=== PATIENT | female | born 1945 | race Caucasian/White ===

== ENCOUNTER 2020-01-21 22:28 | Inpatient (IN) | payer MEDICARE, OTHER, SELFPAY ==
[2020-01-21] VITALS (7 sets, daily range): BP systolic 128–161; BP diastolic 88–118; PULSE 87–105; RESP 10–25; TEMP 36.2; O2SAT 91–93; BMI 49.2
--- NOTE | 2020-01-21 21:50 | NURSING ---
Addendum entered by Tiffanie Lopez 01/22/20 00:17: Heparin from previous facility was running at 2,300units/hour upon arrival to this facility. Original Note: Patient came with a bag of heparin running, per physician order left heparin running and will draw a PTT and adjust and hang new bag after PTT comes back.
--- NOTE | 2020-01-21 22:40 | PCM.HP.STD ---
Problem List (1) NSTEMI (non-ST elevated myocardial infarction) Status: Acute (2) Heart failure Status: Suspected History of Present Illness Date of Admission: 01/21/20 Chief Complaint: Dyspnea The patient is a 74 year old F patient with a history of hypertension and obstructive sleep apnea who presented to [facility] with progressively worsening shortness of breath. Patient is a poor historian and is unable to give specifics. She reported that for many months she had shortness of breath but in the past 1 months her shortness of breath has been progressively worse. Her shortness of breath occurs with exertion and now it has progressed to the point where it occurs even with sitting. At [facility] her high sensitivity troponin was elevated 136.1 (normal 0-51.4). CXR was interpreted as lung base patchy infiltrate. White count was 11.6. ProBNP was elevated at 6622 (normal 0 -125) Case was discussed with Hospitalist and Global Logistics Manager . Heart Failure With elevated BNP and elevated troponin likely patient is at heart failure. Unclear whether patient has a history of heart failure. Already on Coreg and lisinopril which would be continued. Received Lasix 40 mg IV at outside hospital. Daily weights. Strict intake and output. Lasix 40 mg IV twice daily. Echocardiogram ordered. Elevated troponin Noted to have elevated high sensitive troponin at the [facility] ED. On heparin from outside Hospital; continued. Trend troponin EKG with no ST elevation at outside Probable pneumonia Actual chest x-ray from [facility] not available. Chest x-ray was interpreted by radiologist as right lung base patchy infiltrate concerning for developing infiltrate. At [facility] pulmonary ED. Repeat chest x-ray. We will hold off antibiotics at this time. We will repeat chest x-ray. If repeat chest is concerning for pneumonia recommend resuming antibiotics. Patient with a mild white count elevation of 11.6. Trend CBC Obstructive sleep apnea On AutoPap machine at home. CPAP nightly ordered. DVT Prophylaxis Subcutaneous Lovenox Past Medical History Medical History: Medical History (Last Updated 01/22/20 @ 03:[address] Valentin Mock MD) HTN (hypertension) I10 Home Medications: Ambulatory Orders Medication Instructions Recorded Carvedilol [Coreg] 12.5 mg PO BID 01/21/20 Cholecalciferol (Vitamin D3) 50 mcg PO DAILY 01/21/20 [Vitamin D3] Ibuprofen 200 mg PO PRN 01/21/20 Levothyroxine [Synthroid] 50 mcg PO DAILY 01/21/20 Lisinopril [Zestril] 20 mg PO BID 01/21/20 Mecobalamin [B12 Active] 2,500 mcg PO DAILY 01/21/20 Sertraline HCl [Zoloft] 150 mg PO DAILY 01/21/20 Surgical History: cholecystectomy - Her gallbladder was found to be cancerous after removal. Smoking Status: Never smoker - *Family History Maternal History Items: Cancer, Diabetes Paternal History Items: Hypertension, - - His father at the age of 48 from committing suicide. Review of Systems Constitutional: Denies: Chills, Fever, Weight Change HEENT: Denies: Head Aches, Sinus Congestion, Sinus Drainage Cardiovascular: Reports: Edema. Denies: Chest Pain, Palpitations Respiratory: Reports: Shortness of Breath, Shortness of breath at rest. Denies: Cough, Sputum production Gastrointestinal: Denies: Abdominal Pain, Nausea, Vomiting Genitourinary: Denies: Dysuria Musculoskeletal: Denies: Joint Pain, Joint Tenderness Skin: Denies: Rash, Wounds Neurological: Denies: Numbness, Tingling, Focal weakness Psychiatric: Denies: Anxiety, Depression, Homicidal Ideations, Suicidal Ideations Hematologic/ Lymphatic: Denies: Easy Bruising, Easy Bleeding VTE Information - Inpt Only VTE Present on Admission: No VTE Mechan Device Prophylaxis: None VTE Pharm Prophylaxis ordered?: Yes Patient Problems: Active and Suspected Problems NSTEMI (non-ST elevated myocardial infarction) (Acute) Heart failure (Suspected) - Physical Exam Vitals/I&O's: Vital Signs Temp Pulse Resp BP Pulse Ox 97.1 F L 87 19 H 157/101 H 93 01/21/20 21:30 01/21/20 22:30 01/21/20 22:30 01/21/20 22:30 01/21/20 22:30 Oxygen Delivery Method Room Air Weight: 134.2 kg Body Mass Index (BMI) 49.2 General: Alert, Oriented x3, Cooperative HEENT: Atraumatic, PERRLA, EOMI, Normocephalic Neck: Supple, No JVD, Negative Carotid Bruits Lungs: Clear to auscultation, Normal air movement Cardiovascular: Regular rate, Normal S1, Normal S2, No murmurs Abdomen: Bowel Sounds Present, Soft, Non Tender Extremities: No edema, Capillary Refill Less than 3 Seconds Skin: No rashes, No breakdown Musculoskeletal: No Tenderness to Palpation of Joints or Extremities Neurological: Cranial nerves II-XII grossly intact Psych/Mental Status: Normal Affect, Appropriate Current Medications Sodium Chloride () 250 mls @ 15 mls/hr IV .[id number] PRN PRN Reason: Saline Flush Sodium Chloride () 250 mls @ 15 mls/hr IV .[id number] PRN PRN Reason: Additional IVPB Infusion Sodium Chloride (0.9% Saline Lock 10 Ml Syringe) 10 - 40 ml IV UD PRN PRN Reason: SALINE FLUSH Assessment/Plan All Active Problems NSTEMI (non-ST elevated myocardial infarction) (Acute) Heart Failure With elevated BNP and elevated troponin likely patient is in heart failure. Unclear whether patient has a history of heart failure. Already on Coreg and lisinopril which will be continued. Received Lasix 40 mg IV at outside hospital. Daily weights. Strict intake and output. Lasix 40 mg IV twice daily. Supplement potassium. Echocardiogram ordered. Elevated troponin It could be demand ischemia or NSTEMI Noted to have elevated high sensitive troponin at the [facility] ED. On heparin from outside Hospital; continued. Trend troponin Probable pneumonia Actual chest x-ray from [facility] not available. Chest x-ray was interpreted by radiologist as right lung base patchy infiltrate concerning for developing infiltrate. At [facility] pulmonary ED. Repeat chest x-ray. We will hold off antibiotics at this time. We will repeat chest x-ray. If repeat chest is concerning for pneumonia recommend resuming antibiotics. Patient with a mild white count elevation of 11.6. Trend CBC HTN Blood pressure is elevated Lisinopril and coreg continued. Trend BP and adjust bp meds Obstructive sleep apnea On AutoPap machine at home. CPAP nightly ordered. DVT Prophylaxis Subcutaneous Lovenox Inpatient E&M: 52214 Init Hosp L3
--- NOTE | 2020-01-21 22:57 | EKG12_ITS ---
Test Reason : NEW EKG Blood Pressure : / mmHG Vent. Rate : 083 BPM Atrial Rate : 083 BPM P-R Int : 156 ms QRS Dur : 100 ms QT Int : 392 ms P-R-T Axes : 002 -55 -31 degrees QTc Int : 460 ms Normal sinus rhythm Left axis deviation Inferior infarct , age undetermined Anterior infarct , age undetermined Abnormal ECG No previous ECGs available Confirmed by NABOR BABCOCK MD ([id number]), commercial production editor NICHO TRENT ([id number]) on 01/23/2020 12:50:45 PM Referred By: Valentin Mock Confirmed By:NABOR BABCOCK MD
--- NOTE | 2020-01-21 22:57 | ECHOD_ITS ---
Reason For Study: DYSPNEA/SOB Procedure This was a 2D Doppler, Color Flow transthoracic echocardiogram. The study was technically difficult. Exam performed supine due to obesity. Exam performed portable in ICU/CCU. Deferred Definity for optimal endocardial imaging due to increased PAP >55mmHG. Left Ventricle Based upon the 2D echocardiographic images obtained there appears to be grossly normal left ventricular size, wall motion, and systolic function. The estimated ejection fraction is 65 %. Unable to assess diastolic dysfunction. Right Ventricle Mildly dilated right ventricle. Mild global right ventricular systolic dysfunction. Atria Normal left atrium. The right atrium is mildly enlarged. No doppler evidence for ASD. Mitral Valve There is no mitral annular calcification. Normal mitral valve. Trivial mitral valve insufficiency. Tricuspid Valve Normal tricuspid valve. Mild tricuspid valve insufficiency. Right ventricular systolic pressure estimated to be 70 mmHg. Aortic Valve The aortic valve is not well visualized. Mild focal aortic valve thickening. Mild focal aortic valve calcification. Mild aortic stenosis. Trivial aortic valve insufficiency. Pulmonic Valve The pulmonic valve is not well visualized. Great Vessels Mild to moderately dilated ascending aorta. Pericardium/Pleural No pericardial effusion. MMode/2D Measurements & Calculations LVIDd: 4.6 cm IVSd: 1.4 cm LVOT diam: 1.9 cm LVIDs: 3.0 cm LVPWd: 1.0 cm LVOT area: 2.9 cm2 RVDd: 3.5 cm FS: 35.3 % Ao root diam: 3.5 cm LAV(MOD-sp2): 53.5 ml LA A4 area: 14.2 cm2 LAV(MOD-sp4): 35.7 ml LA dimension(2D): 3.4 cm Time Measurements MV dec time: 0.26 sec Doppler Measurements & Calculations MV E max courtney: 64.2 cm/sec Ao V2 max: 192.4 cm/sec LV V1 max: 112.9 cm/sec MV A max courtney: 97.7 cm/sec Ao max P.8 mmHg LV V1 max P.1 mmHg MV E/A: 0.66 Ao V2 mean: 137.0 cm/sec LV V1 mean P.3 mmHg Ao mean P.6 mmHg LV V1 mean: 88.7 cm/sec Ao V2 VTI: 30.8 cm LV V1 VTI: 20.3 cm CAROLINA(I,D): 1.9 cm2 CAROLINA(V,D): 1.7 cm2 SV(LVOT): 59.1 ml PA V2 max: 87.9 cm/sec TR max courtney: 364.9 cm/sec TR max P.3 mmHg Interpretation Summary The study was technically difficult. Based upon the 2D echocardiographic images obtained there appears to be grossly normal left ventricular size, wall motion, and systolic function. The estimated ejection fraction is 65 %. Mildly dilated right ventricle. Mild global right ventricular systolic dysfunction. Trivial mitral valve insufficiency. Mild tricuspid valve insufficiency. The aortic valve is not well visualized. Mild aortic stenosis. Trivial aortic valve insufficiency. Mild to moderately dilated ascending aorta. (approximately 4.4 cm) Right ventricular systolic pressure estimated to be 70 mmHg c/w pulmonary hypertension. Unable to assess diastolic dysfunction. Ordering Physician: Valentin Mock Referring Physician: NO PCP Performed By: Kezia Messer RDCS, RVT
[2020-01-21 23:45] LABS: Partial Thromboplast Time > 250.0 Seconds (24.1-36.2)
[2020-01-22] VITALS (24 sets, daily range): BP systolic 94–167; BP diastolic 70–115; PULSE 66–92; RESP 14–30; TEMP 36.4–36.8; O2SAT 91–100
--- NOTE | 2020-01-22 00:16 | NURSING ---
PTT came back great than 250.0 heparin was paused at 23:45 and will be restarted at 0145am at the 1,700 units per hour as ordered per our physician.
[2020-01-22] MEDS: HEPARIN/D5w 25,000 UNITS 25,000 UNITS/250 ML IV.SOLN. 17 UNITS IV (01:53)
[2020-01-22 04:49] LABS: Absolute Lymphocyte Count 2.28 X10^3/uL (0.83-4.51); Basophil# 0.04 X10^3/uL; Basophil% 0.4 % (0-1); Eosinophil# 0.12 X10^3/uL; Eosinophils% 1.3 % (0-5); Hematocrit 39.1 % (37-47); Hemoglobin 12.4 g/dL (12.0-15.0); Lymphocyte # 2.28 X10^3/ul (4.0); Lymphocyte % 25.2 % (19-41); Mean Corp Hgb Conc 31.7 g/dL (32-36); Mean Corpuscular Hgb 28.5 pg (27.0-32.0); Mean Corpuscular Volume 89.9 fL (81-99); Mean Platelet Vol. 9.7 fl (6.2-12.0); Monocyte# 0.59 X10^3/uL; Monocyte% 6.5 % (0-10); NRBC Flagged by Analyzer 0 % (0-5); Neutrophil # 5.97 X10^3/uL (2.7-7.7); Neutrophil % 66.2 % (47-70); Platelet Count 222 K/mm3 (150-450); RBC Distribution Width CV 13.2 % (11.6-14.6); RBC Distribution Width SD 43.7 fl (35.1-43.9); Red Blood Count 4.35 M/mm3 (4.2-5.4)
[2020-01-22 05:07] LABS: Anion Gap 5 (5-15); BUN 13 mg/dL (7-18); BUN/Creat Ratio 15.7 RATIO (10-20); Calcium,Total 9.1 mg/dL (8.5-10.1); Chloride 109 mmol/L (98-107); Cholesterol 126 mg/dL (200); Creatinine, Serum 0.83 mg/dL (0.55-1.02); EST Glomerular Filtration Rate 71 mL/min (>60); Est Glom Filt Rate - Afr Amer 86 mL/min (>60); Estimated Creatinine Clearance 53.51 ml/min; Glucose 100 mg/dL (74-106); High Density Lipoprotein 44 mg/dL; Potassium 3.5 mmol/L (3.5-5.1); Sodium Level 141 mmol/L (136-145); Thyroid Stim Hormone (TSH) 2.56 uIU/mL (0.358-3.74); Triglycerides 92 mg/dL; Very Low Density Lipoprotein 18 mg/dL (5-40)
[2020-01-22] MEDS: Levothyroxine 50 MCG Tablet PO (05:44)
--- NOTE | 2020-01-22 05:55 | RAD_ITS ---
STUDY: X-RAY CHEST REASON FOR EXAM: Female, 74 years old. SOB TECHNIQUE: Single AP portable view of the chest. COMPARISON: None. FINDINGS: EKG electrodes are seen. The lungs are clear and expanded. There is no demonstrated pleural abnormality. Normal size heart. Normal mediastinum and samuel. Normal visualized pulmonary arteries. There is atherosclerotic tortuosity of the aortic arch and descending thoracic aorta. Normal visualized thoracic spine. Normal visualized ribs, clavicles, and shoulders. There is no demonstrated abnormality of the visualized soft tissue structures of the upper abdomen. RAD/Chest 1 View (Portable) IMPRESSION: Normal x-ray examination of the chest. Electronically Signed: Koko Guzman, at 10:20 EST , Service support ,
--- NOTE | 2020-01-22 07:24 | PCM.PN.HOSP ---
Patient Problems: Active and Suspected Problems (Last Updated 01/22/20 @ 15:35 by Sandy Sharif) NSTEMI (non-ST elevated myocardial infarction) (Acute) Heart failure (Suspected) HLD (hyperlipidemia) (Acute) Reason for Visit: Follow-up on hypoxia/Acute NSTEMI Subjective: Patient was seen and examined. She feels slightly better. Patient underwent cardiac catheterization today. Coronaries were normal. Left ventricle was normal, questionable bicuspid AV with mild aortic stenosis, severe pulmonary hypertension, RVSP 70 Objective: Physical exam: General: Alert, Oriented x3, Cooperative, on 2L oxygen HEENT: Atraumatic, PERRLA, EOMI, Normocephalic Neck: Supple, No JVD, Negative Carotid Bruits Lungs: Diminished air entry at lung bases Cardiovascular: Regular rate, Normal S1, Normal S2, No murmurs Abdomen: Bowel Sounds Present, Soft, Non Tender Extremities: Bilateral pedal edema +1-2 Skin: No rashes Musculoskeletal: No Tenderness to Palpation of Joints or Extremities Neurological: Cranial nerves II-XII grossly intact Psych/Mental Status: Normal Affect, Appropriate Vitals/I&O's: Vital Signs Temp Pulse Resp BP Pulse Ox 97.5 F L 78 18 125/78 H 93 01/22/20 05:00 01/22/20 07:00 01/22/20 07:00 01/22/20 07:00 01/22/20 07:00 Oxygen Delivery Method Room Air Weight: 132.449 kg Body Mass Index (BMI) 49.2 Intake and Output for Last 24 Hours 01/20/20 01/21/20 01/22/20 23:59 23:59 23:59 Intake Total 30 Output Total 725 / 725 550 / 550 Balance -725 / -725 -520 / -520 Laboratory Results 01/21/20 23:05: Troponin I 0.165 H 01/21/20 23:05: APTT > 250.0 H* 01/22/20 02:35: Troponin I 0.117 H 01/22/20 04:25: Troponin I 0.102 H 01/22/20 04:30: WBC 9.0, RBC 4.35, Hgb 12.4, Hct 39.1, MCV 89.9, MCH 28.5, MCHC 31.7 L, RDW Std Deviation 43.7, RDW Coeff of Sky 13.2, Plt Count 222, MPV 9.7, Immature Gran % (Auto) 0.400, Neut % (Auto) 66.2, Lymph % (Auto) 25.2, Drew % (Auto) 6.5, Eos % (Auto) 1.3, Baso % (Auto) 0.4, Absolute Neuts (auto) 6.0, Absolute Lymphs (auto) 2.28, Nucleated RBC % 0 01/22/20 04:30: Sodium 141, Potassium 3.5, Chloride 109 H, Carbon Dioxide 27.0, Anion Gap 5, BUN 13, Creatinine 0.83, Estim Creat Clear Calc 53.51, Est GFR (MDRD) Af Amer 86, Est GFR (MDRD) Non-Af 71, BUN/Creatinine Ratio 15.7, Glucose 100, Calcium 9.1, Triglycerides 92, Cholesterol 126, LDL Cholesterol 64, VLDL Cholesterol 18, HDL Cholesterol 44, TSH 2.56 Current Medications Acetaminophen (Acetaminophen 325 Mg Tablet) 650 mg PO Q6H PRN PRN PRN Reason: Pain Score 1-10/Temp > 100.7 F Aspirin (Aspirin E.C. 81 Mg Tablet) 81 mg PO DAILY@0800 [facility] Atorvastatin Calcium (Atorvastatin Calcium 40 Mg Tablet) 40 mg PO QHS [facility] Carvedilol (Carvedilol 12.5 Mg Tablet) 12.5 mg PO BID [facility] Furosemide (Furosemide 40 Mg/4 Ml Vial) 40 mg IV BID@1000,1800 [facility] Heparin Sodium (Porcine) (Heparin Injection (Vial) 5,000 Unit/Ml Vial) 0 unit IV UD PRN; Protocol PRN Reason: dose adjustment Sodium Chloride () 250 mls @ 15 mls/hr IV .[id number] PRN PRN Reason: Saline Flush Sodium Chloride () 250 mls @ 15 mls/hr IV .[id number] PRN PRN Reason: Additional IVPB Infusion Heparin Sodium/Dextrose () 25,000 units in 250 mls @ 17 mls/hr IV .[id number] [facility]; Protocol Last Admin: 01/22/20 01:54 Dose: Not Given Documented by: Levothyroxine Sodium (Levothyroxine 50 Mcg Tablet) 50 mcg PO DAILY@0600 [facility] Last Admin: 01/22/20 05:44 Dose: 50 mcg Documented by: Lisinopril (Lisinopril 20 Mg Tablet) 20 mg PO BID [facility] Potassium Chloride (Potassium Chloride 20 Meq Tablet) 40 meq PO DAILYCM [facility] Senna/Docusate Sodium (Senna/Docusate Sodium 1 Tablet) 2 tablet PO BID PRN PRN PRN Reason: Constipation Sertraline HCl (Sertraline 100 Mg Tablet) 150 mg PO DAILY [facility] Sodium Chloride (0.9% Saline Lock 10 Ml Syringe) 10 - 40 ml IV UD PRN PRN Reason: SALINE FLUSH STROKE Vital Signs/Narrative: Vital Signs Temp Pulse Resp BP Pulse Ox 01/22/20 07:00 78 18 125/78 H 93 01/22/20 06:00 82 16 127/77 H 93 01/22/20 05:00 97.5 F L 92 14 131/70 H 93 01/22/20 04:00 81 15 94/71 92 Medical Necessity - Tobacco Use Smoking Status: Never smoker Assessment/Plan All Active Problems (Last Updated 01/22/20 @ 15:35 by Sandy Sharif) NSTEMI (non-ST elevated myocardial infarction) (Acute) HLD (hyperlipidemia) (Acute) 1. Acute NSTEMI, s/p cardiac cath showed normal coronaries Continue on aspirin, statin, carvedilol, lisinopril 2. Acute hypoxic respiratory insufficiency secondary to severe pulmonary hypertension/probable diastolic CHF Continue with breathing treatments, encourage use of incentive spirometer. Wean off oxygen for SPO2 more than 94% 3. severe pulmonary hypertension/probable diastolic CHF Continue scheduled Lasix IV twice daily 4. Abnormal CXR, acute pneumonia ruled out with normal repeat CXR 5. Hypertension, controlled, continue on lisinopril 6. Hypothyroidism, continue levothyroxine 7. NASEEM on CPAP 8. DVT PPx - early ambulation Inpatient E&M: 32837 Subs Hosp L2
--- NOTE | 2020-01-22 08:50 | CON.PCM_ITS ---
Problem List (1) NSTEMI (non-ST elevated myocardial infarction) Status: Acute (2) Heart failure Status: Suspected Qualifiers: Heart failure type: unspecified (3) Murmur, cardiac Status: Chronic (4) HLD (hyperlipidemia) Status: Acute (5) HTN (hypertension) Status: Chronic (6) NASEEM (obstructive sleep apnea) Status: Chronic (7) Lymphedema Status: Chronic (8) Gallbladder carcinoma Status: Chronic Reason for Consult Date of Consultation: 01/22/20 History of Present Illness: The patient is a 74 year old old white female with a past history of a cardiac murmur, hyperlipidemia, hypertension, obstructive sleep apnea, lymphedema, 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 She presented to her local emergency department yesterday based upon concerns of chest discomfort that occurred earlier in the day associated with shortness of breath/dyspnea. She states she has a home O2 sat monitor. Based upon her home O2 sat monitor she stated her O2 saturation was in the 70 to 80% range. Later on she states it stabilized in the 80 to 90% range. She contacted her primary care physician. She noted later that day she received a call from her primary care physician office stating she should report to the emergency department for further evaluation. By that time she had elected to contact the EMS and have herself taken to the local emergency department. There she was found to have an abnormal high-sensitivity TSH level, an abnormal NT proBNP level, and abnormal chest x-ray suggesting a right basilar patchy infiltrate concerning for pneumonia, and a COVID-19 negative test. According to a telephone conversation with the emergency department physician her ECG demonstrated no acute changes. A copy is unavailable for review at this time. The patient was subsequently transferred to [facility] for further evaluation and care. In the interim she reportedly received medical therapy with aspirin, clopidogrel/Plavix, IV heparin, and IV Lasix. She has denied any acute orthopnea or PND. She does not recall having nausea or emesis. She states she may have been diaphoretic. There has been no loss of consciousness. She states her lower extremity chronic lymphedema may have been getting worse recently. She does note that her shortness of breath/dyspnea has been worsening over approximately the last 4 weeks. She does not recall any fevers. She states she is been followed by [facility] cardiology in the past. She is unsure as to the exact reason for this. However she states there has been concern of a cardiac murmur and whether she has a bicuspid valve. According to the medical records available for her there is a comment that she may have mitral valve regurgitation. She believes she has undergone cardiovascular testing in the past. She is unclear whether she ever had a transthoracic echocardiogram. She does believe that she had an exercise tolerance test/imaging study performed on more than one occasion. She believes these test may have been performed at [facility]. She does state that her history of gallbladder carcinoma was found after her gallbladder was removed. She was subsequently evaluated at the [facility] Main campus. She underwent additional surgery. She underwent chemotherapy. She states that is now approximately 3 years ago. She follows with [facility] hematology oncology locally for routine outpatient follow-ups. At the moment she states she feels better. She appears to be resting comfortably at the moment. She is not currently wearing O2 as she was at her local emergency department. At that time she was reported by telephone is requiring 4 L O2 nasal cannula to keep her O2 saturations in the low 90% range. [] Past Medical History Allergies/Adverse Reactions: Allergies No Known Allergies Allergy (Verified 01/21/20 23:45) Home Medications: Ambulatory Orders Medication Instructions Recorded Carvedilol [Coreg] 12.5 mg PO BID 01/21/20 Cholecalciferol (Vitamin D3) 50 mcg PO DAILY 01/21/20 [Vitamin D3] Ibuprofen 200 mg PO PRN 01/21/20 Levothyroxine [Synthroid] 50 mcg PO DAILY 01/21/20 Lisinopril [Zestril] 20 mg PO BID 01/21/20 Mecobalamin [B12 Active] 2,500 mcg PO DAILY 01/21/20 Sertraline HCl [Zoloft] 150 mg PO DAILY 01/21/20 Past Medical History (Chronic Problems): Chronic Problems (Last Updated 01/22/20 @ 03:[address] Valentin Mock MD) Murmur, cardiac (Chronic) HTN (hypertension) (Chronic) NASEEM (obstructive sleep apnea) (Chronic) Gallbladder carcinoma (Chronic) Lymphedema (Chronic) Surgical History: cholecystectomy - Her gallbladder was found to be cancerous after removal. - *Family History Maternal History Items: Cancer, Diabetes Paternal History Items: Hypertension, - - His father at the age of 48 from committing suicide. Smoking Status: Never smoker Review of Systems - Review of Systems General: Denies: Fever, Night Sweats, Fatigue Cardiovascular: Reports: Chest Discomfort, Chest Discomfort at Rest, Shortness of Breath, Shortness of Breath at Rest, Shortness of Breath with Exertion, Peripheral Edema. Denies: Orthopnea, PND, Palpitations, Lightheadedness, Dizziness, Near Syncope, Syncope Respiratory: Reports: Shortness of Breath. Denies: Cough, Sputum Production, Hemoptysis Gastrointestinal: Denies: Hematemesis, Hematochezia, Melena Genitourinary: Denies: Dysuria, Hematuria Skin: Denies: Rash Objective: Vital Signs Temp Pulse Resp BP Pulse Ox 97.5 F L 78 18 125/78 H 93 01/22/20 05:00 01/22/20 07:00 01/22/20 07:00 01/22/20 07:00 01/22/20 07:00 Oxygen Delivery Method Room Air Weight: 292 lb Body Mass Index (BMI) 49.2 Intake and Output for Last 24 Hours 01/20/20 01/21/20 01/22/20 23:59 23:59 23:59 Intake Total 30 / 30 Output Total 725 / 725 550 / 550 Balance -725 / -725 -520 / -520 General: Awake, Alert, Oriented x 3, Cooperative, No Acute Distress, Obese HEENT: Atraumatic, Normocephalic, PERRL, EOMI, Sclera Non Icteric Neck: Supple, Good ROM, No JVD Lungs: Diminished Desmond Bases, - - Diminished inspiratory effort Cardiovascular: Regular Rhythm, Normal S1, Normal S2 Murmur Murmur: Grade 2/6, Soft, Mid Systolic, LLSB, LVOT, Sternal Notch Vascular: No Carotid Bruits Abdomen: Bowel Sounds Present, Soft, Non Tender, Obese Extremities: Severe RLE Edema, Severe LLE Edema Psych/Mental Status: Appropriate 01/21/20 23:05: Troponin I 0.165 H 01/21/20 23:05: APTT > 250.0 H* 01/22/20 02:35: Troponin I 0.117 H 01/22/20 04:25: Troponin I 0.102 H 01/22/20 04:30: WBC 9.0, RBC 4.35, Hgb 12.4, Hct 39.1, MCV 89.9, MCH 28.5, MCHC 31.7 L, Plt Count 222, MPV 9.7, Immature Gran % (Auto) 0.400, Neut % (Auto) 66.2, Lymph % (Auto) 25.2, Ray % (Auto) 6.5, Eos % (Auto) 1.3, Baso % (Auto) 0.4, Absolute Neuts (auto) 6.0, Nucleated RBC % 0 01/22/20 04:30: Sodium 141, Potassium 3.5, Chloride 109 H, Carbon Dioxide 27.0, Anion Gap 5, BUN 13, Creatinine 0.83, Est GFR (MDRD) Af Amer 86, Est GFR (MDRD) Non-Af 71, BUN/Creatinine Ratio 15.7, Glucose 100, Calcium 9.1, Triglycerides 92, Cholesterol 126, LDL Cholesterol 64, VLDL Cholesterol 18, HDL Cholesterol 44 Rhythm: Sinus rhythm EKG: Sinus rhythm; left axis deviation; possible anterior AK of indeterminate age; possible inferior AK of indeterminate age ECHO: Pending CXR: Preliminary evaluation: Possible right lower lobe infiltrate; possible increased pulmonary vascularity; possible tortuous thoracic aorta; official report pending Assessment/Plan 1. Non-ST segment elevation AK The patient has been referred for concerns of a non-ST segment elevation AK. She presented with chest discomfort and shortness of breath and potentially diaphoresis superimposed upon her chronic medical conditions. At the outside institution she had an elevated high-sensitivity troponin I level. This is been repeated locally. Her troponin I levels are indeterminant. Are decreasing. Her ECG is as noted. She is pending further evaluation with a transthoracic echocardiogram to evaluate her left ventricular wall motion and systolic function. From a cardiac standpoint she will continue medical therapy for the possibility of an acute coronary syndrome/non-ST segment elevation AK. However, it is unclear whether this may be a type I event versus a type II event from supply demand mismatch. She may eventually need further evaluation with diagnostic cardiac catheterization to evaluate her coronary anatomy. In the interim she should be considered for other etiologies of her symptoms and her laboratory findings. This would include screening the patient for any thromboembolic disease. This could include a D-dimer level and if abnormal consideration for chest CT scan to evaluate for any obvious evidence of pulmonary emboli. The patient has been reported as being evaluated at the outside institution for COVID-19. Her test report from the outside institution was negative. 2. CHF The patient has been reported as having concerns of CHF. This is based upon her history and examination findings and elevation of an outside NT proBNP level at 6622. At this point time it is unclear as to whether this represents cardiovascular related CHF either systolic or diastolic from issues with the left ventricular dysfunction versus potentially obstructive sleep apnea with concerns of possible pulmonary hypertension and cor pulmonale and right heart failure. At the moment she will be followed. Her laboratory studies can be followed. She is receiving medical therapy which includes IV diuretics. She is pending evaluation with a transthoracic echocardiogram. 3. Cardiac murmur She states she has a longstanding history of cardiac murmur. She does on examination. She has commented something regarding a bicuspid valve. Her outside medical records states she has a history of mitral valve regurgitation. She is undergoing evaluation with an echocardiogram to evaluate her valvular anatomy and physiology. 4. Hyperlipidemia She does have a history of hyperlipidemia. Her lipids have been reviewed. She will continue medical therapy. 5. Hypertension She reports that she normally is hypertensive. At the moment her blood [id number] being monitored. She will continue medical management. 6. Obstructive sleep apnea She reports a history of NASEEM. This could lead to pulmonary hypertension with cor pulmonale and right heart failure. This could contribute to her symptoms and her objective findings such as her lower extremity edema. She will undergo evaluation with an echocardiogram and an attempt to assess her right-sided pressures/right sided function to assist with her ongoing evaluation and care. 7. Lymphedema She states she has a longstanding history of lymphedema. She was told that diuretics were not going to be able to benefit her because of her lymphedema. However she states her lower extremity and it has worsened recently. Thus she will continue evaluation care as noted. 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 She follows with [facility] hematology oncology locally for her routine outpatient follow-ups. Comment: The patient's case has been discussed and reviewed with the patient and previously with the outside emergency department physician staff. This note was generated using a voice recognition system and there may be incorrect words, spelling or punctuation that were not noted when reviewing the office note prior to saving.
[2020-01-22 09:54] LABS: D-Dimer Quantitative (DVT/PE) 2.93 FEU/ug/m (0.27-0.49)
[2020-01-22] MEDS: Carvedilol 12.5 MG Tablet PO ×2 (10:19→22:20)
[2020-01-22] MEDS: Aspirin E.C. 81 MG Tablet PO (10:19)
[2020-01-22] MEDS: TICAGRELOR 90 MG TABLET 180 MG PO (10:19)
[2020-01-22] MEDS: 0.9% Normal Saline 1,000 ML 50 ML IV (13:10)
--- NOTE | 2020-01-22 13:18 | CL.D_ITS ---
Patient Name: ISHMAEL NUNN Study Date: 01/22/2020 Performing: Filiberto Jamil MD Ht: 65 inches 165 cm : 1945 Wt: 291.4 lbs 132 kg Age: 74 Gender: female BSA: 2.32 PROCEDURE(S) PERFORMED [id number] ROOT ANGIO WITH HEART CATH CLINICAL PROFILE AND INDICATIONS Indications: ACS <= 24 hrs, Suspected CAD, Valvular Disease Heart Failure: NYHA Class: 3, Newly Diagnosed: Yes, Heart Failure Type: Diastolic Stress/Imaging Stress/Image Study Performed: No Angina Classification Anginal Classification w/in 2 Weeks: Anginal Equivalent Dyspnea CAD Presentations: Other: chest pain; dyspnea CONCLUSIONS Normal coronary arteries Aortic Root dilated Aortic Valve: cannot exclude a Bicuspid Aortic Valve with Mild Insufficiency RECOMMENDATIONS Risk factor modification Medical therapy Consider AV evaluation with MILIND DESCRIPTION OF PROCEDURE The patient arrived to the procedure lab. The risks and benefits of the procedure as well as a full d escription of our services here and current unavailability of surgical backup were fully explained to the patient and/or their significant other prior to the catheterization. The Timeout was completed, verifying the correct patient and procedure. The patient's procedural site was prepped and draped in the usual fashion. Local anesthetic was given subcutaneously to right radial region with Lidocaine 2% . Using a modified Seldinger technique, arterial access was obtained via the right radial artery, a 6 Fr sheath was inserted. Left Coronary Artery selective angiography was performed in multiple views u sing a 5 Fr. JL 5 catheter. Right Coronary Artery selective angiography was then performed in multipl e views using a 5 Fr. JR 4 catheter. Ascending (root) aorta selective angiography was then performed in single view. Ascending (root) aorta selective angiography was then performed in single view.The arterial sheath was pulled and a TR Band was applied for hemostasis 20cc air CORONARY ANGIOGRAPHY DOMINANCE: Right Dominant LEFT HEART ASSESSMENT Left Ventricular Ejection Fraction: Not assessed LEFT MAIN: Angiographically normal LEFT ANTERIOR DESCENDING ARTERY: Angiographically normal CIRCUMFLEX ARTERY: Angiographically normal RIGHT CORONARY ARTERY: Angiographically normal VALVE FINDINGS: Cannot excluded Bicuspid Aortic Valve Aortic Valve Insufficiency: Grade 1 cannot exclude a Bicuspid Aortic Valve with Mild Insufficiency AORTIC ROOT: Dilated COMPLICATIONS No Complications PROCEDURE MEDICATIONS Fentanyl 50 mcg IV Versed 1 mg IV Oxygen: 2 L/min via nasal cannula Heparin diluted in 23cc Heparinized saline. Patient given 10cc IA of this solution. 01/22/2020 12:29 :25 Verapamil 2.5mg, Ntg 100mcgs, 2000 units of Heparin diluted in 23cc Heparinized saline. Patient give n 10cc IA of this solution. 01/22/2020 12:29:25 SUMMARY OF HEMODYNAMIC DATA Time AIR REST ECG 10:47:30 AO 116/64 (80) SA 12:20:31 AO 144/80 (107) 12:57:56 Signed By Filiberto Jamil MD On 01/22/2020 13:17:42 Filiberto Jamil MD
--- NOTE | 2020-01-22 13:45 | CASEMGMT ---
ETHEL HYATT assessment: Face to Face with patient for initial transition planning/care coordination assessment. ETHEL HYATT introduced self and role at [facility], pt voices understanding and consents to assessment at this time. Pt is sitting up in bed in no distress at this time. Pt is A/Ox4 at this time and answers most questions appropriately at this time. Pt is forgetful and cannot remember names of doctors, pharmacy or DME company. Care providers, pharmacy, and demographics verified/updated at this time. Presentation: Pt is direct admit from [facility] for worsening SOB, elevated troponin Admitting dx: NSTEMI PCP: Rea Specialists: lissy Huizar Pharmacy: [facility] Insurance: [employer] [facility] A/B, itembase Prescription Benefit: Rx plan Living Will/HPOA: Pt states has LW/HPOA and is aware that they are not on file at [facility] at this time. Pt states that her daughter, Dina Meyer, is HPOA. LNOK: Magen Jackson, ; Dina Meyer, daughter/HPOA Living Arrangements: Pt states lives with on main level of 2 story [employer] and states no concerns at home at this time. Pt states is independent with ADL's. Transportation: Pt states drives self and states no transportation concerns at this time. DME/HHC: Pt states has the following DME: cane, walker, grab bars, shower chair, and cpap thru [facility](possibly). Pt states no need for any further DME at this time. Pt states has had HHC in the past s/p knee surgery and states no hx of SNF. Pt states no concerns with going home at time of discharge. Pt states is retired. Pt states does not smoke cigarettes or drink ETOH. Pt states no further concerns/needs at this time. CM to follow for any further discharge planning/needs. Advised pt to ask for CM if any further questions/concerns/needs arise, voices understanding. Pt Goal: Home Plan: [place] ETHEL HYATT
[2020-01-22] MEDS: Lisinopril 20 MG Tablet PO ×2 (15:18→22:22)
[2020-01-22] MEDS: Sertraline 100 MG Tablet 150 MG PO (15:19)
[2020-01-22] MEDS: Furosemide 40 MG/4 ML Vial IV ×2 (15:29→22:23)
[2020-01-22] MEDS: Atorvastatin Calcium 40 MG Tablet PO (22:23)
[2020-01-22] MEDS: 0.9% Saline Lock 10 ML Syringe IV (22:23)
[2020-01-23] VITALS (15 sets, daily range): BP systolic 109–149; BP diastolic 56–90; PULSE 70–100; RESP 16–20; TEMP 36.4–36.9; O2SAT 93–98
[2020-01-23] MEDS: Levothyroxine 50 MCG Tablet PO (05:51)
--- NOTE | 2020-01-23 05:55 | EKG12_ITS ---
Test Reason : AM EKG Blood Pressure : / mmHG Vent. Rate : 067 BPM Atrial Rate : 067 BPM P-R Int : 160 ms QRS Dur : 100 ms QT Int : 426 ms P-R-T Axes : 022 -62 -10 degrees QTc Int : 450 ms Sinus rhythm with Premature atrial complexes Left axis deviation Abnormal ECG When compared with ECG of 22-JAN-2020 00:34, MANUAL COMPARISON REQUIRED, DATA IS UNCONFIRMED Confirmed by VAL FOX, CHARLIE ([id number]), copy editor PAL KOEHLER ([id number]) on 01/27/2020 1:14:02 PM Referred By: Valentin Mock Confirmed By:STEFAN NEAL MD
[2020-01-23 06:49] LABS: Absolute Lymphocyte Count 1.52 X10^3/uL (0.83-4.51); Absolute Neutrophil Count 5.8 X10^3/uL (2.0-7.7); Basophil# 0.04 X10^3/uL; Basophil% 0.5 % (0-1); Eosinophil# 0.14 X10^3/uL; Eosinophils% 1.7 % (0-5); Hemoglobin 12.7 g/dL (12.0-15.0); Lymphocyte # 1.52 X10^3/ul (4.0); Lymphocyte % 18.9 % (19-41); Mean Corp Hgb Conc 31.8 g/dL (32-36); Mean Corpuscular Hgb 28.3 pg (27.0-32.0); Mean Corpuscular Volume 89.1 fL (81-99); Mean Platelet Vol. 9.6 fl (6.2-12.0); Monocyte# 0.56 X10^3/uL; NRBC Flagged by Analyzer 0 % (0-5); Neutrophil # 5.76 X10^3/uL (2.7-7.7); Neutrophil % 71.7 % (47-70); Platelet Count 239 K/mm3 (150-450); RBC Distribution Width CV 13.2 % (11.6-14.6); RBC Distribution Width SD 43.3 fl (35.1-43.9); Red Blood Count 4.49 M/mm3 (4.2-5.4)
[2020-01-23 07:24] LABS: Anion Gap 3 (5-15); BUN 11 mg/dL (7-18); BUN/Creat Ratio 12.1 RATIO (10-20); Calcium,Total 9.5 mg/dL (8.5-10.1); Chloride 106 mmol/L (98-107); Creatinine, Serum 0.91 mg/dL (0.55-1.02); EST Glomerular Filtration Rate 64 mL/min (>60); Est Glom Filt Rate - Afr Amer 78 mL/min (>60); Glucose 91 mg/dL (74-106); Potassium 3.5 mmol/L (3.5-5.1); Sodium Level 140 mmol/L (136-145)
--- NOTE | 2020-01-23 08:05 | PN_ITS ---
Patient Problems: Active and Suspected Problems (Last Updated 01/22/20 @ 15:35 by Sandy Sharif) NSTEMI (non-ST elevated myocardial infarction) (Acute) Heart failure (Suspected) HLD (hyperlipidemia) (Acute) Reason for Visit: Follow-up on hypoxia/Acute NSTEMI Subjective: Patient was seen and examined. She underwent MILIND today. Findings showed right ventricular dilation with dilated aortic root. Severely elevated RVSP. Feels much improved. Denied any chest pain or dizziness or shortness of breath. Objective: Physical exam: General: Alert, Oriented x3, Cooperative, off oxygen, appears comfortable HEENT: Atraumatic, PERRLA, EOMI, Normocephalic Neck: Supple, No JVD, Negative Carotid Bruits Lungs: Diminished air entry at lung bases Cardiovascular: Regular rate, Normal S1, Normal S2, No murmurs Abdomen: Bowel Sounds Present, Soft, Non Tender Extremities: Bilateral pedal edema +1-2 Skin: No rashes Musculoskeletal: No Tenderness to Palpation of Joints or Extremities Neurological: Cranial nerves II-XII grossly intact Psych/Mental Status: Normal Affect, Appropriate Vitals/I&O's: Vital Signs Temp Pulse Resp BP Pulse Ox 98.4 F 70 18 148/90 H 98 01/23/20 04:20 01/23/20 07:00 01/23/20 04:20 01/23/20 04:20 01/23/20 04:20 Oxygen Flow Rate (L/min) 2 Oxygen Delivery Method Nasal Cannula Weight: 131.5 kg Body Mass Index (BMI) 49.2 Intake and Output for Last 24 Hours 01/21/20 01/22/20 01/23/20 23:59 23:59 23:59 Intake Total 836.15 / 836.15 Output Total 725 / 725 550 / 550 650 / 650 Balance -725 / -725 286.15 / 286.15 -650 / -650 Laboratory Results 01/22/20 09:10: APTT Cancelled 01/22/20 09:10: D-Dimer Quant (PE/DVT) 2.93 H* 01/23/20 06:22: WBC 8.0, RBC 4.49, Hgb 12.7, Hct 40.0, MCV 89.1, MCH 28.3, MCHC 31.8 L, RDW Std Deviation 43.3, RDW Coeff of Sky 13.2, Plt Count 239, MPV 9.6, Immature Gran % (Auto) 0.200, Neut % (Auto) 71.7 H, Lymph % (Auto) 18.9 L, [place]ockley % (Auto) 7.0, Eos % (Auto) 1.7, Baso % (Auto) 0.5, Absolute Neuts (auto) 5.8, Absolute Lymphs (auto) 1.52, Nucleated RBC % 0 01/23/20 06:22: Sodium 140, Potassium 3.5, Chloride 106, Carbon Dioxide 31.0, Anion Gap 3 L, BUN 11, Creatinine 0.91, Estim Creat Clear Calc 48.80, Est GFR (MDRD) Af Amer 78, Est GFR (MDRD) Non-Af 64, BUN/Creatinine Ratio 12.1, Glucose 91, Calcium 9.5 01/23/20 06:22: B-Natriuretic Peptide Pending Current Medications Acetaminophen (Acetaminophen 325 Mg Tablet) 650 mg PO Q6H PRN PRN PRN Reason: Pain Score 1-10/Temp > 100.7 F Aspirin (Aspirin E.C. 81 Mg Tablet) 81 mg PO DAILY@0800 [facility] Last Admin: 01/22/20 10:19 Dose: 81 mg Documented by: Atorvastatin Calcium (Atorvastatin Calcium 40 Mg Tablet) 40 mg PO QHS [facility] Last Admin: 01/22/20 22:23 Dose: 40 mg Documented by: Carvedilol (Carvedilol 12.5 Mg Tablet) 12.5 mg PO BID [facility] Last Admin: 01/22/20 22:20 Dose: 12.5 mg Documented by: Furosemide (Furosemide 40 Mg/4 Ml Vial) 40 mg IV BID@1000,1800 [facility] Last Admin: 01/22/20 22:23 Dose: 40 mg Documented by: Heparin Sodium (Porcine) (Heparin Injection (Vial) 5,000 Unit/Ml Vial) 0 unit IV UD PRN; Protocol PRN Reason: dose adjustment Sodium Chloride () 250 mls @ 15 mls/hr IV .[id number] PRN PRN Reason: Saline Flush Sodium Chloride () 250 mls @ 15 mls/hr IV .[id number] PRN PRN Reason: Additional IVPB Infusion Sodium Chloride () 1,000 mls @ 0 mls/hr IV .Q0M [facility] Sodium Chloride () 1,000 mls @ 0 mls/hr IV .Q0M [facility] Levothyroxine Sodium (Levothyroxine 50 Mcg Tablet) 50 mcg PO DAILY@0600 [facility] Last Admin: 01/23/20 05:51 Dose: 50 mcg Documented by: Lisinopril (Lisinopril 20 Mg Tablet) 20 mg PO BID [facility] Last Admin: 01/22/20 22:22 Dose: 20 mg Documented by: Potassium Chloride (Potassium Chloride 20 Meq Tablet) 40 meq PO DAILYCM [facility] Last Admin: 01/22/20 10:19 Dose: 40 meq Documented by: Senna/Docusate Sodium (Senna/Docusate Sodium 1 Tablet) 2 tablet PO BID PRN PRN PRN Reason: Constipation Sertraline HCl (Sertraline 100 Mg Tablet) 150 mg PO DAILY [facility] Last Admin: 01/22/20 15:19 Dose: 150 mg Documented by: Sodium Chloride (0.9% Saline Lock 10 Ml Syringe) 10 - 40 ml IV UD PRN PRN Reason: SALINE FLUSH Last Admin: 01/22/20 22:23 Dose: 10 ml Documented by: STROKE Vital Signs/Narrative: Vital Signs Temp Pulse Resp BP Pulse Ox 01/23/20 07:00 70 01/23/20 04:20 98.4 F 75 18 148/90 H 98 Medical Necessity - Tobacco Use Smoking Status: Never smoker Assessment/Plan All Active Problems (Last Updated 01/22/20 @ 15:35 by Sandy Sharif) NSTEMI (non-ST elevated myocardial infarction) (Acute) HLD (hyperlipidemia) (Acute) 1. Acute NSTEMI, s/p cardiac cath showed normal coronaries Continue on aspirin, statin, carvedilol, lisinopril 2. Acute hypoxic respiratory insufficiency secondary to severe pulmonary hypertension/probable diastolic CHF Continue with breathing treatments, encourage use of incentive spirometer. Wean off oxygen for SPO2 more than 94% 3. Severe pulmonary hypertension/cor pulmonale/right heart failure/ diastolic CHF Switch to Lasix p.o. twice daily, Pulmonology consulted 4. Abnormal CXR, acute pneumonia ruled out with normal repeat CXR 5. Hypertension, controlled, continue on lisinopril 6. Hypothyroidism, continue levothyroxine 7. NASEEM on CPAP 8. Morbid Obesity, BMI 48.2, lifestyle modification recommended 9. DVT PPx - early ambulation Inpatient E&M: 43788 Subs Hosp L2
--- NOTE | 2020-01-23 08:30 | ECHOTEE_ITS ---
Version 2 Reason For Study: MURMUR Medication MILIND probe 6VT-D (SN [id number]) passed without difficulty. No complications were noted. Cetacaine Topical Desoto given X3 orally. Versed 1 mg given slow IVP. Fentanyl 50 mcg given slow IVP. Performed a rapid injection of agitated mix of 9 cc saline and 1cc air to assess for atrial septal defect. (Bubble X 2). Left Ventricle Normal LV size. Left ventricular systolic function is normal. The estimated ejection fraction is 65 %. No regional wall motion abnormalities noted. Right Ventricle Mildly dilated right ventricle. Mild global right ventricular systolic dysfunction. Atria No doppler evidence for ASD. Bubble contrast study negative for right to left interatrial shunt. Normal left atrium. There is no sponatenous contrast in the left atrium. No thrombus is detected in the left atrial appendage. The right atrium is mildly enlarged. There is no sponatenous contrast in the right atrium. No obvious right atrial/appendage thrombus identified. Mitral Valve The mitral papillary muscle appears thickened and/or calcified. Normal mitral valve. Trivial mitral valve insufficiency. Tricuspid Valve Normal tricuspid valve. Moderate (2+) tricuspid valve insufficiency. Estimated RV systolic pressure of approximately 65 mmHg (without contribution of estimated right atrial pressure). Aortic Valve 2D echocardiographic images demonstrate findings compatible with a bicuspid aortic valve with a fused raphae with mild diffuse thickening and mild focal calcification with an aortic valve area by planimetry of 1.7 cm?? compatible with mild aortic valve stenosis. Trivial aortic valve insufficiency. Pulmonic Valve The pulmonic valve is not well visualized. Trivial pulmonic valve insufficiency. Vessels The ascending aorta is mild-moderately dilated. Mild atherosclerosis of the descending aorta. Pericardium No pericardial effusion. MMode/2D Measurements & Calculations Ao root diam: 4.0 cm Aortic Valve Planimetry: 1.7 cm2 Doppler Measurements & Calculations TR max courtney: 401.4 cm/sec Interpretation Summary Performed a rapid injection of agitated mix of 9 cc saline and 1cc air to assess for atrial septal defect. Left ventricular systolic function is normal. The estimated ejection fraction is 65 %. Mildly dilated right ventricle. Mild global right ventricular systolic dysfunction. There is no sponatenous contrast in the left atrium. No thrombus is detected in the left atrial appendage. The right atrium is mildly enlarged. Trivial mitral valve insufficiency. Moderate (2+) tricuspid valve insufficiency. 2D echocardiographic images demonstrate findings compatible with a bicuspid aortic valve with a fused raphae with mild diffuse thickening and mild focal calcification with an aortic valve area by planimetry of 1.7 cm?? compatible with mild aortic valve stenosis. Trivial aortic valve insufficiency. Trivial pulmonic valve insufficiency. Bubble contrast study negative for right to left interatrial shunt. The ascending aorta is mild-moderately dilated. (Approximately 4.1 cm) Mild atherosclerosis of the descending aorta. Estimated RV systolic pressure of approximately 65 mmHg (without contribution of estimated right atrial pressure). Ordering Physician: Filiberto Jamil Referring Physician: SIMON HARRIS Performed By: Giovanna Moreno, RDCS, RVT
--- NOTE | 2020-01-23 09:28 | PCM.PN.CARD ---
Subjectve: The patient is now status post MILIND. She is awake and alert. She denies any acute complaints. Objective: Vital Signs Temp Pulse Resp BP Pulse Ox 97.8 F 76 18 149/78 H 97 01/23/20 08:15 01/23/20 08:15 01/23/20 08:15 01/23/20 08:15 01/23/20 08:15 Oxygen Flow Rate (L/min) 2 Oxygen Delivery Method Nasal Cannula Weight: 289 lb 14.526 oz Body Mass Index (BMI) 49.2 Intake and Output for Last 24 Hours 01/21/20 01/22/20 01/23/20 23:59 23:59 23:59 Intake Total 836.15 / 836.15 Output Total 725 / 725 550 / 550 1150 / 1150 Balance -725 / -725 286.15 / 286.15 -1150 / -1150 General: Awake, Alert, Oriented x 3, Cooperative, No Acute Distress, Obese HEENT: Atraumatic, Normocephalic, PERRL, EOMI, Sclera Non Icteric Neck: Supple, Good ROM, No JVD Lungs: Diminished Desmond Bases Cardiovascular: Regular Rhythm, Normal S1, Normal S2 Murmur Murmur: Grade 2/6, Soft, Mid Systolic, LLSB, LVOT, Sternal Notch Vascular: Normal Radial Pulses Abdomen: Bowel Sounds Present, Soft Extremities: Severe RLE Edema, Severe LLE Edema Neurological: No Focal Motor or Sensory Deficit Psych/Mental Status: Appropriate 01/22/20 09:10: APTT Cancelled 01/22/20 09:10: D-Dimer Quant (PE/DVT) 2.93 H* 01/23/20 06:22: WBC 8.0, RBC 4.49, Hgb 12.7, Hct 40.0, MCV 89.1, MCH 28.3, MCHC 31.8 L, Plt Count 239, MPV 9.6, Immature Gran % (Auto) 0.200, Neut % (Auto) 71.7 H, Lymph % (Auto) 18.9 L, Hendry % (Auto) 7.0, Eos % (Auto) 1.7, Baso % (Auto) 0.5, Absolute Neuts (auto) 5.8, Nucleated RBC % 0 01/23/20 06:22: Sodium 140, Potassium 3.5, Chloride 106, Carbon Dioxide 31.0, Anion Gap 3 L, BUN 11, Creatinine 0.91, Est GFR (MDRD) Af Amer 78, Est GFR (MDRD) Non-Af 64, BUN/Creatinine Ratio 12.1, Glucose 91, Calcium 9.5 Rhythm: Sinus rhythm Echocardiogram: Interpretation Summary The study was technically difficult. Based upon the 2D echocardiographic images obtained there appears to be grossly normal left ventricular size, wall motion, and systolic function. The estimated ejection fraction is 65 %. Mildly dilated right ventricle. Mild global right ventricular systolic dysfunction. Trivial mitral valve insufficiency. Mild tricuspid valve insufficiency. The aortic valve is not well visualized. Mild aortic stenosis. Trivial aortic valve insufficiency. Mild to moderately dilated ascending aorta. (approximately 4.4 cm) Right ventricular systolic pressure estimated to be 70 mmHg c/w pulmonary hypertension. Unable to assess diastolic dysfunction. Cardiac catheterization: CONCLUSIONS Normal coronary arteries Aortic Root dilated Aortic Valve: cannot exclude a Bicuspid Aortic Valve with Mild Insufficiency Medical Necessity - Tobacco Use Smoking Status: Never smoker Assessment/Plan 1. Non-ST segment elevation ME The patient has been referred for concerns of a non-ST segment elevation ME. She presented with chest discomfort and shortness of breath and potentially diaphoresis superimposed upon her chronic medical conditions. At the outside institution she had an elevated high-sensitivity troponin I level. This is been repeated locally. Her troponin I levels are indeterminant. Her ECG is as noted. She has undergone further evaluation with transthoracic echocardiogram. The results are as noted. She is also undergone further evaluation with diagnostic cardiac catheterization. Her coronary anatomy demonstrated angiographically normal-appearing coronary arteries. Her thoracic aortic evaluation could not exclude a bicuspid aortic valve and her aortic root/ascending aorta appeared to be dilated. 2. CHF The patient has been reported as having concerns of CHF. This is based upon her history and examination findings and elevation of an outside NT proBNP level at 6622. At the present time this does not appear to be systolic mediated. Based upon the ongoing findings there is concerned that the patient may have, as an etiology for her CHF, obstructive sleep apnea with pulmonary hypertension with cor pulmonale and right heart failure. She Will need to continue medical management. She may need pulmonary evaluation for consideration of vasodilator therapy. 3. Cardiac murmur: Thought secondary to aortic valve disorder She has undergone evaluation with a transthoracic echocardiogram and male subsequently cardiac catheterization and subsequently a MILIND. At the present time based upon review of all her studies it does appear that she has findings compatible with a bicuspid aortic valve with a fused raphae. Her spectral Doppler measurements and planimetry measurements would suggest that the degree of aortic valve stenosis is mild. So, her aortic root/ascending aortic dilatation may be secondary to her aortic valve disease. This will need to be followed noninvasively over time which will include echocardiographic studies and consideration for a chest CT scan as well. 4. Hyperlipidemia She does have a history of hyperlipidemia. Her lipids have been reviewed. She will continue medical therapy. 5. Hypertension She reports that she normally is hypertensive. At the moment her blood [id number] being monitored. She will continue medical management. 6. Obstructive sleep apnea with pulmonary hypertension She reports a history of NASEEM. Her noninvasive studies suggest markedly elevated right ventricular systolic pressure compatible with severe pulmonary hypertension. Again this could lead to cor pulmonale and right heart failure and contribute to her symptoms and objective findings. She will need to continue medical management and support. She states she is wearing a CPAP device but did not start wearing one until approximately 1 year ago. 7. Lymphedema She states she has a longstanding history of lymphedema. She was told that diuretics were not going to be able to benefit her because of her lymphedema. However she states her lower extremity and it has worsened recently. Again this may be secondary to concerns of obstructive sleep apnea with pulmonary hypertension and cor pulmonale and right heart failure. 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 She follows with [facility] hematology oncology locally for her routine outpatient follow-ups. Overall, from a cardiovascular standpoint, she does need to continue cardiovascular risk factor modification medical therapy as deemed appropriate. She is undergone noninvasive and invasive evaluation. This is led to the findings of no angiographically significant CAD, preserved overall LV systolic function, concerns of a bicuspid aortic valve with mild aortic valve stenosis, and concerns of severe pulmonary hypertension which may lead to cor pulmonale and right heart failure as the source of her symptoms and objective findings. Thus at this time she will need continued medical management and support as it does not appear she requires coronary artery revascularization therapy or aortic valve intervention. Comment: The patient's case has been discussed and reviewed with the patient. This note was generated using a voice recognition system and there may be incorrect words, spelling or punctuation that were not noted when reviewing the office note prior to saving.
[2020-01-23 10:36] LABS: BNP,B-Type NATRIURETIC PEPTIDE 415.4 pg/mL (0-100)
[2020-01-23] MEDS: Carvedilol 12.5 MG Tablet PO ×2 (11:01→20:12)
[2020-01-23] MEDS: Lisinopril 20 MG Tablet PO ×2 (11:01→20:12)
[2020-01-23] MEDS: Aspirin E.C. 81 MG Tablet PO (11:01)
[2020-01-23] MEDS: Sertraline 100 MG Tablet 150 MG PO (11:02)
[2020-01-23] MEDS: Furosemide 40 MG/4 ML Vial IV (11:02)
--- NOTE | 2020-01-23 15:06 | CASEMGMT ---
Pt was unsure which DME company her cpap is through so call placed to [facility] as she thinks that may be it, message left for them to call this RN CM back at this time. SStkarol DAVENPORT CM
--- NOTE | 2020-01-23 16:16 | PCM.CONS.PUL ---
Problem List (1) NSTEMI (non-ST elevated myocardial infarction) Status: Acute (2) Heart failure Status: Suspected Qualifiers: Heart failure type: unspecified (3) Murmur, cardiac Status: Chronic (4) HTN (hypertension) Status: Chronic (5) HLD (hyperlipidemia) Status: Acute (6) NASEEM (obstructive sleep apnea) Status: Chronic (7) Lymphedema Status: Chronic Reason for Consult Date of Consultation: 01/23/20 Reason for Consultation: Pulmonary hypertension History of Present Illness: The patient is a 74 year old F, with past medical history listed below, who presented [facility] on 01/21/2020 secondary to worsening shortness of breath. Patient reportedly had originally presented to an outside hospital and had progressive shortness of breath over the last 2 to 3 months. Patient had also reported significant worsening of lower extremity edema. Patient does not check her weight on a daily basis, but felt that it was going up significantly. At the outside facility, patient had an elevated troponin, chest x-ray showing patchy infiltrates, leukocytosis at 11.6 and a proBNP elevated at over 6000. Patient was admitted to the floor for further evaluation. Since being in the hospital, patient has had a significant work-up from a cardiovascular standpoint. This did include a heart catheterization suggesting elevated pulmonary artery pressures, so a pulmonary consult was obtained. Patient reports that she was initially started on sleep apnea therapy about 2 or 3 years ago. Patient states she has not had a good time using her machine secondary to lack of supplies. Patient states that she forgets to add supplies and sometimes falls asleep in an arm chair. Patient has not been on supplemental oxygen previously. Patient states that she has had inhalers in the past, but did not believe that they helped her shortness of breath. Patient does report that she has been feeling this way for months and felt that it was not addressed as an outpatient. Patient denies any history of smoking or drug use. 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 Patient denies any exposure to asbestos or TB. Patient does believe that she is much improved after initiation of Lasix therapy. Patient denies any history of diet drug use. Review of systems otherwise negative from a constitutional, HEENT, respiratory, cardiovascular, GI, genitourinary, musculoskeletal, skin, neurologic, psychiatric and hematologic system unless stated above. Past Medical History Past Medical History (Chronic Problems): Chronic Problems (Last Updated 01/22/20 @ 15:35 by Sandy Sharif) Murmur, cardiac (Chronic) HTN (hypertension) (Chronic) NASEEM (obstructive sleep apnea) (Chronic) Gallbladder carcinoma (Chronic) Lymphedema (Chronic) Medical History: Medical History (Last Updated 01/22/20 @ 15:35 by Sandy Sharif) History of left heart catheterization (LHC) Onset Date: ~01/22/20 Z98.890 LEFT MAIN: Angiographically normal; LEFT ANTERIOR DESCENDING ARTERY: Angiographically normal;CIRCUMFLEX ARTERY: Angiographically normal; RIGHT CORONARY ARTERY: Angiographically normal; VALVE FINDINGS: Cannot excluded Bicuspid Aortic Valve, Aortic Valve Insufficiency: Grade 1, cannot exclude a Bicuspid Aortic Valve with Mild Insufficiency; AORTIC ROOT:Dilated; CONCLUSIONS: Normal coronary arteries, Aortic Root dilated, Aortic Valve: cannot exclude a Bicuspid Aortic Valve with Mild Insufficiency per cardiac cath 01/22/20 HTN (hypertension) I10 Allergies No Known Allergies Allergy (Verified 01/21/20 23:45) Home Medications: Ambulatory Orders Medication Instructions Recorded Carvedilol [Coreg] 12.5 mg PO BID 01/21/20 Cholecalciferol (Vitamin D3) 50 mcg PO DAILY 01/21/20 [Vitamin D3] Ibuprofen 200 mg PO PRN 01/21/20 Levothyroxine [Synthroid] 50 mcg PO DAILY 01/21/20 Lisinopril [Zestril] 20 mg PO BID 01/21/20 Mecobalamin [B12 Active] 2,500 mcg PO DAILY 01/21/20 Sertraline HCl [Zoloft] 150 mg PO DAILY 01/21/20 Surgical History: cholecystectomy - Her gallbladder was found to be cancerous after removal. Smoking Status: Never smoker - *Family History Maternal History Items: Cancer, Diabetes Paternal History Items: Hypertension, - - His father at the age of 48 from committing suicide. Review of Systems Comment: See HPI Patient Problems: Active and Suspected Problems (Last Updated 01/22/20 @ 15:35 by Sandy Sharif) NSTEMI (non-ST elevated myocardial infarction) (Acute) Heart failure (Suspected) HLD (hyperlipidemia) (Acute) Objective: All imaging and testing was personally reviewed. Patient has not had a pulmonary function test for quantification clarification of lung function. Patient did have a left heart catheterization showing aortic stenosis and elevated pulmonary artery pressures. Right heart catheterization was not completed. - Physical Exam Vitals/I&O's: Vital Signs Temp Pulse Resp BP Pulse Ox 36.5 C L 84 18 129/70 H 94 01/23/20 11:00 01/23/20 11:00 01/23/20 11:00 01/23/20 11:00 01/23/20 11:00 Oxygen Flow Rate (L/min) 2 Oxygen Delivery Method Room Air Weight: 131.5 kg Body Mass Index (BMI) 49.2 Intake and Output for Last 24 Hours 01/21/20 01/22/20 01/23/20 23:59 23:59 23:59 Intake Total 836.15 / 836.15 480 / 480 Output Total 725 / 725 550 / 550 1250 / 1250 Balance -725 / -725 286.15 / 286.15 -770 / -770 General: Alert, Oriented x3, Cooperative, No apparent distress, - - Morbidly obese. Speaking in full sentences. HEENT: Atraumatic, PERRLA, EOMI, Normocephalic, - - Edentulous. Crowded posterior pharynx. Oral: Moist Mucosa, No Gingival or Mucosal Lesions/ Ulcerations Neck: Supple, No JVD, No Nodes, Trachea Midline Lungs: No rhonchi, No wheeze, No rales, Diminished Cardiovascular: Regular rate, Regular Rhythm, Normal S1, Normal S2, Murmur - Grade 2 out of 6 systolic ejection murmur at the right sternal border, No rub noted, No Gallop Abdomen: Bowel Sounds Present, Soft, Non Tender, Non-Distended, Obese Extremities: No clubbing, No cyanosis, Edema - 4+ bilateral lower extremity lymphedema Skin: No rashes, No breakdown Musculoskeletal: No Tenderness to Palpation of Joints or Extremities Lymphatic: No Cervical, Supraclavicular, or Inguinal Adenopathy Neurological: Cranial nerves II-XII grossly intact, Neuro grossly intact, Motor Exam 5/5 strength throughout Psych/Mental Status: Alert and oriented to time, place, person, mood and affect Laboratory Results 01/23/20 06:22: WBC 8.0, RBC 4.49, Hgb 12.7, Hct 40.0, MCV 89.1, MCH 28.3, MCHC 31.8 L, RDW Std Deviation 43.3, RDW Coeff of Sky 13.2, Plt Count 239, MPV 9.6, Immature Gran % (Auto) 0.200, Neut % (Auto) 71.7 H, Lymph % (Auto) 18.9 L, [place] % (Auto) 7.0, Eos % (Auto) 1.7, Baso % (Auto) 0.5, Absolute Neuts (auto) 5.8, Absolute Lymphs (auto) 1.52, Nucleated RBC % 0 01/23/20 06:22: Sodium 140, Potassium 3.5, Chloride 106, Carbon Dioxide 31.0, Anion Gap 3 L, BUN 11, Creatinine 0.91, Estim Creat Clear Calc 48.80, Est GFR (MDRD) Af Amer 78, Est GFR (MDRD) Non-Af 64, BUN/Creatinine Ratio 12.1, Glucose 91, Calcium 9.5 01/23/20 06:22: B-Natriuretic Peptide 415.4 H Current Medications Acetaminophen (Acetaminophen 325 Mg Tablet) 650 mg PO Q6H PRN PRN PRN Reason: Pain Score 1-10/Temp > 100.7 F Aspirin (Aspirin E.C. 81 Mg Tablet) 81 mg PO DAILY@0800 [facility] Last Admin: 01/23/20 11:01 Dose: 81 mg Documented by: Atorvastatin Calcium (Atorvastatin Calcium 40 Mg Tablet) 40 mg PO QHS [facility] Last Admin: 01/22/20 22:23 Dose: 40 mg Documented by: Carvedilol (Carvedilol 12.5 Mg Tablet) 12.5 mg PO BID [facility] Last Admin: 01/23/20 11:01 Dose: 12.5 mg Documented by: Furosemide (Furosemide 40 Mg Tablet) 40 mg PO BID@1000,1800 [facility] Heparin Sodium (Porcine) (Heparin Injection (Vial) 5,000 Unit/Ml Vial) 0 unit IV UD PRN; Protocol PRN Reason: dose adjustment Sodium Chloride () 250 mls @ 15 mls/hr IV .[id number] PRN PRN Reason: Saline Flush Sodium Chloride () 250 mls @ 15 mls/hr IV .[id number] PRN PRN Reason: Additional IVPB Infusion Sodium Chloride () 1,000 mls @ 0 mls/hr IV .Q0M [facility] Sodium Chloride () 1,000 mls @ 0 mls/hr IV .Q0M [facility] Levothyroxine Sodium (Levothyroxine 50 Mcg Tablet) 50 mcg PO DAILY@0600 [facility] Last Admin: 01/23/20 05:51 Dose: 50 mcg Documented by: Lisinopril (Lisinopril 20 Mg Tablet) 20 mg PO BID [facility] Last Admin: 01/23/20 11:01 Dose: 20 mg Documented by: Potassium Chloride (Potassium Chloride 20 Meq Tablet) 40 meq PO DAILYCM [facility] Last Admin: 01/23/20 11:01 Dose: 40 meq Documented by: Senna/Docusate Sodium (Senna/Docusate Sodium 1 Tablet) 2 tablet PO BID PRN PRN PRN Reason: Constipation Sertraline HCl (Sertraline 100 Mg Tablet) 150 mg PO DAILY [facility] Last Admin: 01/23/20 11:02 Dose: 150 mg Documented by: Sodium Chloride (0.9% Saline Lock 10 Ml Syringe) 10 - 40 ml IV UD PRN PRN Reason: SALINE FLUSH Last Admin: 01/22/20 22:23 Dose: 10 ml Documented by: Assessment/Plan All Active Problems (Last Updated 01/22/20 @ 15:35 by Sandy Sharif) NSTEMI (non-ST elevated myocardial infarction) (Acute) HLD (hyperlipidemia) (Acute) RECOMMENDATIONS: 1. Aggressive diuresis 2. Initiate CPAP and improve compliance 3. Walking oximetry prior to discharge 4. Will likely need a RHC at some point once optimized 5. Cardiac optimization per cardiology IMPRESSIONS: 1. Pulmonary hypertension Clinical suspicion for type II pulmonary hypertension, but this cannot be confirmed without a right heart catheterization. Patient also has elements that could predispose to type III pulmonary hypertension such as protracted hypoxia related to obstructive sleep apnea or exertional hypoxemia. Patient should be optimized with supplemental oxygen, diuretics and NASEEM therapy. Once patient is optimized, evaluation with a right heart catheterization would be appropriate. Patient does not give significant pulmonary history to suggest COPD or other advanced obstructive lung disease. Given body habitus, cannot exclude interstitial fibrosis as a complicating factor. Patient will need a walking oximetry prior to discharge as she will likely require supplemental oxygen with exertion. 2. Acute diastolic CHF/aortic stenosis/hypertension/hypothyroidism/NASEEM noncompliance/morbid obesity Complicates care, management, recovery and prognosis. Would recommend initiation of NASEEM therapy if settings can be obtained. An alternative would be using BiPAP with AVAPS and a targeted tidal volume of 450. Okay to continue with baseline medications from my perspective. Patient can be evaluated for alternative interface options to improve compliance as an outpatient with NASEEM. Inpatient E&M: 80687 Init Hosp L3
[2020-01-23] MEDS: Furosemide 40 MG Tablet PO (17:26)
[2020-01-23] MEDS: Atorvastatin Calcium 40 MG Tablet PO (20:12)
[2020-01-24 02:20] VITALS: BP 103/56; PULSE 88; RESP 17; TEMP 36.7; O2SAT 96
--- NOTE | 2020-01-24 02:30 | CPS ---
Discussed Cpap use with pt. Mask does not fit correctly, Will attempt to give her a new mask to take home however pt stated the DR might order a new study to improve her sleep, might even change mode depending on study. Pt is comfortable with 2L nasal o2 foe sleeping.
[2020-01-24 03:13] VITALS: PULSE 78
[2020-01-24] MEDS: Levothyroxine 50 MCG Tablet PO (05:47)
[2020-01-24 07:09] VITALS: PULSE 82
--- NOTE | 2020-01-24 07:34 | CT_ITS ---
STUDY: CTA CHEST REASON FOR EXAM: Female, 74 years old. ELEVATED D-DIMER, SOB RADIATION DOSAGE (If Supplied By Facility): CTDIvol = ( 29.37 ) mGy, DLP = ( 736.31 ) mGycm TECHNIQUE: The examination was performed with the intravenous administration of IV 100mL Isovue-370. Post-processing of the angiographic images was performed, with multiplanar reformation and 3D reconstruction. Individualized dose optimization techniques were used for this CT. COMPARISON: Comparison is made with prior chest radiograph dated 01/22/2020. FINDINGS: There are multiple bilateral intraluminal filling defects in the distal portion of the right pulmonary artery as well as the interlobar arteries bilaterally extending into multiple branches of the upper and lower lobe pulmonary arterial branches. Intraluminal filling defects are also seen in the distal portion of the left pulmonary artery. Normal thoracic aorta and visualized great vessels. There is no demonstrated aortic dissection. Small pericardial effusion. Normal mediastinum. Normal hilar regions. Normal visualized trachea and bronchi. The lungs are well expanded. Normal pulmonary parenchyma. Normal pleura. Normal chest wall structures. There are mild degenerative changes of thoracic spine. There is a 1.3 cm x 1.3 cm round hypodensity in the left lobe of the liver. This may represent a small cyst although correlation with ultrasound is recommended for further evaluation. CT/CTA Chest W/WO Contrast IMPRESSION: Extensive bilateral pulmonary emboli. Small pericardial effusion. Findings suggestive of a small cyst measuring 1.3 cm and the left lobe of the liver. Electronically Signed: Koko Guzman, at 8:47 EST , Service support ,
[2020-01-24 07:44] LABS: ALB/GLOB Ratio 0.6 RATIO (0.9-2.4); AST(SGOT) 20 U/L (15-37); Alanine Aminotransfer ALT/SGPT 23 U/L (13-56); Albumin, Serum 2.8 g/dL (3.2-5.0); Alkaline Phosphatase 111 U/L (45-117); Anion Gap 6 (5-15); BUN 24 mg/dL (7-18); BUN/Creat Ratio 19.2 RATIO (10-20); Calcium,Total 9.9 mg/dL (8.5-10.1); Chloride 107 mmol/L (98-107); Creatinine, Serum 1.25 mg/dL (0.55-1.02); EST Glomerular Filtration Rate 44 mL/min (>60); Est Glom Filt Rate - Afr Amer 54 mL/min (>60); Estimated Creatinine Clearance 35.53 ml/min; Globulin 4.6 g/dL (2.2-4.2); Glucose 97 mg/dL (74-106); Potassium 3.8 mmol/L (3.5-5.1); Protein, Total 7.4 g/dL (6.4-8.2); Sodium Level 139 mmol/L (136-145)
[2020-01-24 08:33] VITALS: BP 116/63; PULSE 92; RESP 18; TEMP 36.6; O2SAT 84; O2SAT 92; O2SAT 94
--- NOTE | 2020-01-24 09:10 | CASEMGMT ---
HERBERT called daughter, message left. SW called , call would not go through and then it did go through, only to ring twice and then rang fast busy. HERBERT called daughter a second time, went to voice mail again. UTYET Jerry
[2020-01-24 09:31] LABS: Bedside Glucose 105 mg/dL (70-110)
--- NOTE | 2020-01-24 09:46 | PCM.CODE.SUM ---
Josue Quiles Report Patient seen briefly this morning at approximately 8 AM. At that time, patient was happy and stated that she felt improved compared to yesterday secondary to diuresis. Patient then went to CT scan with it desktop support technician. At approximately 9 AM, rapid response and JOSUE QUILES was called. On my evaluation, patient was apneic and receiving bag mask ventilation. Compressions were initiated secondary to a lack of pulse and PEA. Given patient's respiratory status, patient was intubated using direct laryngoscopy by myself on the first attempt using a 7.5 endotracheal tube advanced to 22 cm. At that time, patient's CAT scan was resulted showing bilateral PEs. Emergent TPA was ordered for massive PE from pharmacy. During that time, patient did have ROSC for a short period of time, but lost her pulse on transport to the intensive care unit where the TPA was finally given. See JOSUE QUILES record for exact details, but patient did receive over 5 doses of epinephrine, 3 A of bicarb, 1 amp of atropine and TPA over the course of approximately 37 minutes of CPR. Patient was pronounced at 9:37 AM from a massive pulmonary embolism with a final rhythm of asystole. Attempts to reach the family over the course of these acute events were unsuccessful. Total critical care time of 37 minutes. Patient Problems: Active and Suspected Problems (Last Updated 01/22/20 @ 15:35 by Sandy Sharif) NSTEMI (non-ST elevated myocardial infarction) (Acute) Heart failure (Suspected) HLD (hyperlipidemia) (Acute) - Physical Exam Vitals/I&O's: Vital Signs Temp Pulse Resp BP Pulse Ox 36.6 C 92 18 116/63 92 01/24/20 08:33 01/24/20 08:33 01/24/20 08:33 01/24/20 08:33 01/24/20 08:33 Oxygen Flow Rate (L/min) [ 0 AMBULATING on Room Air] Oxygen Flow Rate (L/min) [At 0 REST on Room Air] Oxygen Flow Rate (L/min) 2 Oxygen Delivery Method Room Air Weight: 131.7 kg Body Mass Index (BMI) 49.2 Intake and Output for Last 24 Hours 01/22/20 01/23/20 01/24/20 23:59 23:59 23:59 Intake Total 836.15 / 836.15 840 / 1080 480 / 480 Output Total 550 / 550 1300 / 1300 30 / 30 Balance 286.15 / 286.15 -460 / -220 450 / 450 Laboratory Results 01/23/20 06:22: B-Natriuretic Peptide 415.4 H 01/24/20 06:32: Sodium 139, Potassium 3.8, Chloride 107, Carbon Dioxide 26.0, Anion Gap 6, BUN 24 H, Creatinine 1.25 H, Estim Creat Clear Calc 35.53, Est GFR (MDRD) Af Amer 54 L, Est GFR (MDRD) Non-Af 44 L, BUN/Creatinine Ratio 19.2, Glucose 97, Calcium 9.9, Total Bilirubin 1.10 H, AST 20, ALT 23, Alkaline Phosphatase 111, Total Protein 7.4, Albumin 2.8 L, Globulin 4.6 H, Albumin/Globulin Ratio 0.6 L 01/24/20 09:11: POC Glucose 105 Current Medications Acetaminophen (Acetaminophen 325 Mg Tablet) 650 mg PO Q6H PRN PRN PRN Reason: Pain Score 1-10/Temp > 100.7 F Aspirin (Aspirin E.C. 81 Mg Tablet) 81 mg PO DAILY@0800 [facility] Last Admin: 01/23/20 11:01 Dose: 81 mg Documented by: Atorvastatin Calcium (Atorvastatin Calcium 40 Mg Tablet) 40 mg PO QHS [facility] Last Admin: 01/23/20 20:12 Dose: 40 mg Documented by: Carvedilol (Carvedilol 12.5 Mg Tablet) 12.5 mg PO BID [facility] Last Admin: 01/23/20 20:12 Dose: 12.5 mg Documented by: Furosemide (Furosemide 40 Mg Tablet) 40 mg PO BID@1000,1800 [facility] Last Admin: 01/23/20 17:26 Dose: 40 mg Documented by: Heparin Sodium (Porcine) (Heparin Injection (Vial) 5,000 Unit/Ml Vial) 0 unit IV UD PRN; Protocol PRN Reason: dose adjustment Sodium Chloride () 250 mls @ 15 mls/hr IV .[id number] PRN PRN Reason: Saline Flush Sodium Chloride () 250 mls @ 15 mls/hr IV .[id number] PRN PRN Reason: Additional IVPB Infusion Sodium Chloride () 1,000 mls @ 0 mls/hr IV .Q0M [facility] Sodium Chloride () 1,000 mls @ 0 mls/hr IV .Q0M [facility] Alteplase, Recombinant 100 mg/ (N/A) 100 mls @ 50 mls/hr IV X1 ONE Stop: 01/24/20 11:09 Levothyroxine Sodium (Levothyroxine 50 Mcg Tablet) 50 mcg PO DAILY@0600 [facility] Last Admin: 01/24/20 05:47 Dose: 50 mcg Documented by: Lisinopril (Lisinopril 20 Mg Tablet) 20 mg PO BID [facility] Last Admin: 01/23/20 20:12 Dose: 20 mg Documented by: Potassium Chloride (Potassium Chloride 20 Meq Tablet) 40 meq PO DAILYCM [facility] Last Admin: 01/23/20 11:01 Dose: 40 meq Documented by: Senna/Docusate Sodium (Senna/Docusate Sodium 1 Tablet) 2 tablet PO BID PRN PRN PRN Reason: Constipation Sertraline HCl (Sertraline 100 Mg Tablet) 150 mg PO DAILY [facility] Last Admin: 01/23/20 11:02 Dose: 150 mg Documented by: Sodium Chloride (0.9% Saline Lock 10 Ml Syringe) 10 - 40 ml IV UD PRN PRN Reason: SALINE FLUSH Last Admin: 01/22/20 22:23 Dose: 10 ml Documented by: Assessment/Plan All Active Problems (Last Updated 01/22/20 @ 15:35 by Sandy Sharif) NSTEMI (non-ST elevated myocardial infarction) (Acute) HLD (hyperlipidemia) (Acute)
--- NOTE | 2020-01-24 09:52 | PRO.PCM_ITS ---
Problem List (1) NSTEMI (non-ST elevated myocardial infarction) Status: Acute (2) Heart failure Status: Suspected Qualifiers: Heart failure type: unspecified (3) Murmur, cardiac Status: Chronic (4) HTN (hypertension) Status: Chronic (5) HLD (hyperlipidemia) Status: Acute (6) NASEEM (obstructive sleep apnea) Status: Chronic (7) Lymphedema Status: Chronic Procedure Report Date of Procedure: 01/24/20 - CODE BLUE summary Patient seen briefly this morning at approximately 8 AM. At that time, patient was happy and stated that she felt improved compared to yesterday secondary to diuresis. Patient then went to CT scan with ground support equipment assembler. At approximately 9 AM, rapid response and JOSUE QUILES was called. On my evaluation, patient was apneic and receiving bag mask ventilation. Compressions were initiated sec ondary to a lack of pulse and PEA. Given patient's respiratory status, patient was intubated using direct laryngoscopy by myself on the first attempt using a 7.5 endotracheal tube advanced to 22 cm. At that time, patient's CAT scan was resulted showing bilateral PEs. Emergent TPA was ordered for massive PE from pharmacy. During that time, patient did have ROSC for a short period of time, but lost her pulse on transport to the intensive care unit where the TPA was finally given. See CODE BLUE record for exact details, but patient did receive over 5 doses of epinephrine, 3 A of bicarb, 1 amp of atropine and TPA over the course of approximately 37 minutes of CPR. Patient was pronounced at 9:37 AM from a massive pulmonary embolism with a final rhythm of asystole. Attempts to reach the family over the course of these acute events were unsuccessful. Total critical care time of 37 minutes. [id number]: [id number] Critical care first hour
--- NOTE | 2020-01-24 10:00 | NURSING ---
Dr. Lou spoke with daughter Dina. Dina states she will notify patient's . Attempts were made to contact ,
--- NOTE | 2020-01-24 10:12 | NURSING ---
This RN attempted to ambulate patient in hallway to assess for O2 qualification needs. At rest, patient maintained 93% on RA. We ambulated into hallway. Patient's sat's stayed at 92% on RA but came very dyspneaic and SOB. I placed her back on 2L for comfort but that did not relieve her symptoms. I returned her to bed and noted her sats dropped to 83%. I then increased her O2 to from 2L to 6L with no change to her sats. I placed her on a non-rebreather and called a staff assist to quickly reposition her in the bed. There was still no change in her O2 sats with the non-rebreather and the patient lost conciousness. At this point a niharika warner was called. See Niharika blue charting
--- NOTE | 2020-01-25 06:53 | EXP.PCM_ITS ---
Preliminary Cause of Acute extensive bilateral pulmonary embolism Date of Admission: 01/21/20 Date of : 01/24/20 - Principle Diagnosis Acute extensive bilateral pulmonary emboli Acute NSTEMI Acute right heart failure/cor pulmonale/severe pulmonary hypertension Problem List: Active and Suspected Problems (Last Updated 01/22/20 @ 15:35 by Sandy Sharif) NSTEMI (non-ST elevated myocardial infarction) (Acute) Heart failure (Suspected) HLD (hyperlipidemia) (Acute) Acute hypoxic respiratory insufficiency Hospital Course 74-year-old female with past medical history of gallbladder cancer status post chemotherapy, NASEEM, hypertension, chronic lymphedema, morbid obesity who was transferred from [facility] with progressive shortness of breath. Patient stated she had progressive shortness of breath ongoing for months but worsened over the last 1 month. This is worse with exertion but lately has been with rest. Patient admits to not using her CPAP because of lack of face mask. Her work-up in pulmonary in hospital showed elevated troponins. Chest x-ray was interpreted patchy infiltrate at lung bases, BMP post 6622. COVID-19 test was negative. Patient denied orthopnea or PND. She stated that her lower extremity edema was worse lately. Repeat troponins in the hospital were indeterminate. Her BNP up here was 415.4. Her management in this admission was that of acute non-STEMI, acute CHF for which she was also started on Lasix. Cardiology was consulted. Patient has 2D echo showed EF of 65%, mildly dilated right ventricle, RVSP of 70mmHg. Patient went for cardiac cath on 01/22/20. Findings were unremarkable coronaries, dilated aortic root, severe pulmonary hypertension. She underwent MILIND on 01/23/20; endings were that of a bicuspid aortic valve with a fused raphe. Her aortic root/ascending aortic dilatation were felt to be secondary to aortic valve disease. Patient continue to appear clinically was improved. She was off oxygen, She had good diuresis and significantly reported that her leg swellings were much improved. CTA of the chest was done on the morning of 01/24/20. Patient on arrival back to her room, was ambulated to check on oxygen. She was 94% on room air but dropped her oxygen significantly prompting being sent back to bed. She subsequently became lethargic, a Ventimask was placed on her. A few seconds later, she was unresponsive and a code blue was called. See code blue summary for details. Patient received 5 doses of epinerphrine, 3 amps of bicarb, 1 amp of atropine, and IV TPA given. Claim Attorney and budget accountant were present during the code. Decision made to give IV TPA based on the CTA chest report. Code blue was run for 37 mins. Attempts to reach family were unsuccessful during the code. Patient was pronounced at 9:37 AM. Inpatient E&M: [id number] Disch Hosp
== END 2020-01-24 09:37 | DRG 175 ==
LOC: ICU 01-22 10:59 → PCU 01-22 13:30 → ICU 01-24 09:22
PROVIDERS: Internal Medicine Cardiovascular Disease; Admitting Provider Hospitalist; PCP Internal Medicine; Referring Provider Hospitalist; Visit Provider Internal Medicine
DX: I26.99 Other pulmonary embolism without acute cor pulmonale (principal); I21.4 Non-ST elevation (NSTEMI) myocardial infarction; I50.31 Acute diastolic (congestive) heart failure; Z68.42 Body mass index [BMI] 45.0-49.9, adult; Q23.1 Congenital insufficiency of aortic valve; I11.0 Hypertensive heart disease with heart failure; G47.33 Obstructive sleep apnea (adult) (pediatric); Z79.899 Other long term (current) drug therapy; E78.5 Hyperlipidemia, unspecified; I27.20 Pulmonary hypertension, unspecified; R09.02 Hypoxemia; R06.89 Other abnormalities of breathing; E03.9 Hypothyroidism, unspecified; Z85.09 Personal history of malignant neoplasm of other digestive organs; I89.0 Lymphedema, not elsewhere classified; I77.810 Thoracic aortic ectasia; I27.81 Cor pulmonale (chronic); E66.01 Morbid (severe) obesity due to excess calories; Z86.15 Personal history of latent tuberculosis infection; Z91.19 Patient's noncompliance with other medical treatment and regimen
CPT/HCPCS: 31500; 36415; 71045; 71275; 80048; 80053; 80061; 82962; 83880; 84443; 84484; 85025; 85379; 85730; 92950; 93005; 93306; 93312; 93320; 93325; 93454; 93567; 97162; 97166; 97802; 99152; 99153; 99251; J7030; J7040; Q9957; Q9967; A4216; C1769; C1894; G0463; J1940